=== PATIENT | male | born 1980 | race Caucasian/White ===

== ENCOUNTER → 2016-10-31 11:02 | Outpatient (CLI) | payer BC ==
[~2016-10-31 11:02] MED LIST: HYDROCODONE-APA1 TAB PO; IBUPROFEN800 MG PO
[2016-11-08 08:26] VITALS: BMI 28.9
== END | disposition home or self-care (01) ==
LOC: D.MRI 11:00
DX: M25.561 Pain in right knee (principal)

== ENCOUNTER 2016-11-08 06:43 | Day surgery (SDC) | payer BC ==
[~2016-11-08] VITALS: Ht 172.7 cm; Wt 86.2 kg
[~2016-11-08 06:43] MED LIST changes: -HYDROCODONE-APA1 TAB PO
[2016-11-08 08:26] VITALS: BP 128/71; Ht 172.7 cm; Wt 86.2 kg
[2016-11-08] MEDS ORDERED: HYDROCODONE-APA1 TAB PO (10:01)
--- NOTE | 2016-11-08 14:08 | NUR ---
1200 IV DC WITH CATHER TIP INTACT
--- NOTE | 2016-11-12 12:58 | OP ---
PATIENT NAME: LAWSON PECK MEDICAL RECORD: [id number] :76 LOCATION:[facility] ADMISSION DATE: SURGEON: MENG MCCARTY MD DATE OF OPERATION: 11/08/2016 PREOPERATIVE DIAGNOSIS: Right knee medial meniscus tear. POSTOPERATIVE DIAGNOSES: Right knee medial meniscus tear. PROCEDURE PERFORMED: Right knee partial medial meniscectomy. SURGEON: Roge Mccarty MD. ANESTHESIA: General. CONDITION: He tolerated the procedure well, was transferred to the recovery room in stable condition at termination of the procedure. INDICATIONS: This is a 36-year-old gentleman that had an episode where he hurt his knee, started having increased medial knee pain, catching and popping and swelling. This was not getting better. We discussed the options. He wanted to proceed with a knee arthroscopy. His MRI has confirmed a medial meniscus tear. We discussed the risks, benefits and alternatives including continued pain. He understood and wished to proceed. OPERATIVE REPORT: The patient was taken to the operating room, placed in supine position and general anesthesia was obtained. His right knee was confirmed to be the correct knee. It was then prepped and draped in the normal fashion. After this was accomplished, he then had his portal sites marked and injected with 0.25% Marcaine with epinephrine. Anterolateral portal was made for the scope and inflow, superomedial for the outflow. Patellofemoral joint was inspected, which was clean, did not show any significant lesions. Dropping down the medial gutter into the medial joint line, there was noted immediately a flipped and folded posterior medial meniscus tear. I did establish an anteromedial portal under direct visualization. This was probed. The cartilage looked good in this area. I went to the notch, checked his ACL and PCL, they were notably intact. Placing him in a [id number], checked laterally and again, these were notably intact. I went back to the medial side, took out the posterior portion from the anterior medial portal and then switched the scope to the anteromedial portal, took off the anterior portion from the lateral portal. This left a very good clean edge on his meniscus. No significant cartilage injury. He was irrigated, then the case was closed. He was closed with 3-0 Prolene and injected with 10 cc Duramorph and 2-3 cc of Marcaine plain. He tolerated this well. He was awakened and transferred to recovery room in stable condition, having tolerated procedure well. TRANSINT:[id number] Voice Confirmation ID: [id number] DOCUMENT ID: [id number] OPERATIVE REPORT [id number] LAWSON PECK, MENG DOMINGO MD at 1258 CC: [id number] DICTATION DATE: 11/08/16 1007 LATRINE CLEANER: 11/08/16 1737 [facility] [place] 11/08/[address] [id number]
== END 2016-11-08 12:30 | disposition home or self-care (01) ==
LOC: D.OPS 06:43 → D.PAN 10:15 → D.OPS 10:15
DX: S83.241A Other tear of medial meniscus, current injury, right knee, initial encounter (principal)